=== PATIENT | male | born 1960 | race Hispanic/Latino ===

== ENCOUNTER 2018-01-28 22:35 | Emergency (ER) | payer MEDICAID ==
[2018-01-28 22:35] VITALS: BMI 51.6
[2018-01-28 22:50] VITALS: PULSE 78; RESP 20; TEMP 98.2; O2SAT 96
--- NOTE | 2018-01-28 23:30 | C.PDOC ---
History Of Present Illness 57 year old male presents to the ED c/o right sided facial pain that has been going on for the past 4 days. Patient reports he is having dental work done on the right side of his mouth. Patient states he has been taking Motrin 800 and Tramadol for pain, initially pain improved after medications. Patient reports today pain was still presents after taking Motrin 800 mg at 21:30. Patient states he has an appointment for his dentist on Tuesday. Patient denies injury, fall, trauma, headache, blurry vision, fever, chills. Time Seen by Provider: 01/28/18 22:54 Chief Complaint (Nursing): Dental Pain History Per: Patient History/Exam Limitations: no limitations Onset/Duration Of Symptoms: Days (4) Current Symptoms Are (Timing): Still Present Quality: Positive for: "Pain" Recent travel outside of the [place]: No Additional History Per: Patient Past Medical History Reviewed: Historical Data, Nursing Documentation, Vital Signs Vital Signs: Last Vital Signs Temp 98.2 F 01/28/18 22:48 Pulse 78 01/28/18 22:48 Resp 20 01/28/18 22:48 BP 172/84 H 01/28/18 23:37 Pulse Ox 96 01/28/18 23:44 - Medical History PMH: HTN Surgical History: No Surg Hx - [facility] Procedures APPLICATION OF SPLINT (06/07/14) Family History: States: Unknown Family Hx - Social History Hx Alcohol Use: No Hx Substance Use: No Review Of Systems Constitutional: Negative for: Fever, Chills ENT: Positive for: Mouth Pain. Negative for: Nose Discharge, Throat Pain Respiratory: Negative for: Cough, Shortness of Breath Gastrointestinal: Negative for: Nausea, Vomiting Skin: Negative for: Rash Neurological: Negative for: Headache, Dizziness Physical Exam - Physical Exam Appears: Non-toxic, No Acute Distress Skin: Normal Color, Warm, Dry Head: Atraumatic, Normacephalic Eye(s): bilateral: Normal Inspection Ear(s): Bilateral: Normal Nose: No Discharge Oral Mucosa: Moist, No Other (swelling to floor of mouth) Tongue: Normal Appearing, No Swelling Lips: Normal Appearing, No Swelling Teeth: Tender To Palpation, Avulsed (partially right upper teeth with decay) Gingiva: Erythema (right upper ), Tender (right upper ) Throat: Normal, No Erythema, No Exudate Neck: Normal ROM, Supple Extremity: Normal ROM Neurological/Psych: Oriented x3, Normal Speech Gait: Steady ED Course And Treatment O2 Sat by Pulse Oximetry: 96 (ON RA) Pulse Ox Interpretation: Normal Progress Note: On reassessment, patient is resting comfortably, and is in no acute distress. Patient was instructed to follow up with physician/clinic in 1- 2 days for further evaluation. Disposition Counseled Patient/Family Regarding: Diagnosis, Need For Followup - Disposition Disposition: HOME/ ROUTINE Disposition Time: 23:28 Condition: STABLE Additional Instructions: Continue motrin PO Take tylenol with codeine for persistent pain Return to ER if worse Prescriptions: Acetaminophen with Codeine [Tylenol with Codeine #3 Tablet] 1 each PO PRN PRN # 10 tablet PRN Reason: Pain, Severe (8-10) Penicillin VK [Penicillin VK Tab] 2 tab PO BID #28 tab Instructions: Tooth Decay, Adult (DC) Forms: [facility] ([place]) - Clinical Impression Clinical Impression: Dental caries - PA / [employer] / Resident Statement MD/DO has reviewed & agrees with the documentation as recorded. - Scribe Statement The provider has reviewed the documentation as recorded by the Scribe Carlos Robertson All medical record entries made by the Scribe were at my direction and personally dictated by me. I have reviewed the chart and agree that the record accurately reflects my personal performance of the history, physical exam, medical decision making, and the department course for this patient. I have also personally directed, reviewed, and agree with the discharge instructions and disposition.
[2018-01-28] MEDS ORDERED: Acetaminophen-Codeine 300/30 mg Tab PO ONE (23:32)
[2018-01-28] MEDS ORDERED: Acetaminophen-Codeine 300/30 mg Tab PO STA (23:35)
[2018-01-28 23:37] VITALS: BP 172/84
== END 2018-01-28 23:36 | disposition home or self-care (01) ==
LOC: C.ER 22:35
DX: K02.9 Dental caries, unspecified (principal)